=== PATIENT | female | born 1995 | race Caucasian/White ===

== ENCOUNTER 2020-03-08 13:34 | Emergency (ER) | payer OTHER ==
[~2020-03-08] VITALS: Ht 160 cm; Wt 67.7 kg
[2020-03-08] MEDS ORDERED: IV NORMAL SALINE 1,000ML 1,000 ML IV SCH (13:40)
[2020-03-08] MEDS ORDERED: CHARCOAL/SORBITOL 25 GM/120 ML SUSPENSION. PO ONE (13:45)
--- NOTE | 2020-03-08 13:56 | PHYS DOC ---
Past History Past Medical History: Migraines Smoking: Non-smoker Alcohol Use: Rarely Drug Use: None General Adult EDM: Chief Complaint: SUICIDAL IDEATION HPI: HPI: 24-year-old female who experiencing depression and took overdose of 6 25 mg Topamax and 6 50 mg sumatriptan approximately 1245 today. Patient says this was due to depression and this was a suicide attempt. Patient called ambulance. Patient still feels suicidal. Patient complains of nausea but denies any pain. Review of Systems: Review of Systems: Constitutional: Denies fever or chills Eyes: Denies change in visual acuity HENT: Denies sore throat Respiratory: Denies cough or shortness of breath Cardiovascular: Denies chest pain or edema GI: Denies abdominal pain, vomiting, or diarrhea complains of nausea : Denies dysuria Musculoskeletal: Denies back pain or joint pain Integument: Denies rash Neurologic: Denies headache or focal weakness Psychiatric: Complains of depression and suicidal ideation Heart Score: Risk Factors: Risk Factors: DM, Current or recent (<one month) smoker, HTN, HLP, family history of CAD, obesity. Risk Scores: Score 0 - 3: 2.5% MACE over next 6 weeks - Discharge Home Score 4 - 6: 20.3% MACE over next 6 weeks - Admit for Clinical Observation Score 7 - 10: 72.7% MACE over next 6 weeks - Early Invasive Strategies Current Medications: Current Meds: Current Medications Medications (Trade) Dose Ordered Sig/Bia Start Time Stop Time Status Last Admin Dose Admin Charcoal/Sorbitol (Actidose Sorbitol) 50 gm 1X ONCE 03/08/20 13:45 03/08/20 13:46 DC Sodium Chloride 1,000 ml @ 1,000 mls/hr Q1H 03/08/20 13:40 03/08/20 14:39 Allergies: Allergies: Allergies Coded Allergies Type Severity Reaction Last Updated Verified azathioprine Allergy Unknown 03/08/20 Yes Physical Exam: PE: Constitutional: Well developed, well nourished, no acute distress, non-toxic appearance. [] HENT: Normocephalic, atraumatic, bilateral external ears normal, oropharynx moist, no oral exudates, nose normal. [] Eyes: PERRLA, EOMI, conjunctiva normal, no discharge. [] Neck: Normal range of motion, no tenderness, supple, no stridor. [] Cardiovascular:Heart rate regular rhythm, no murmur [] Lungs & Thorax: Bilateral breath sounds clear to auscultation [] Abdomen: Bowel sounds normal, soft, no tenderness, no masses, no pulsatile masses. [] Skin: Warm, dry, no erythema, no rash. [] Back: No tenderness, no CVA tenderness. [] Extremities: No tenderness, no cyanosis, no clubbing, ROM intact, no edema. [] Neurologic: Alert and oriented X 3, normal motor function, normal sensory function, no focal deficits noted. [] Psychologic: Depressed mood, tearful EKG: EKG: [] Normal sinus rhythm with a rate of 94 normal axis normal intervals and normal ST segments Radiology/Procedures: Radiology/Procedures: [] Course & Med Decision Making: Course & Med Decision Making Pertinent Labs and Imaging studies reviewed. (See chart for details) At 1430 discussed with poison control who suggest 6-hour observation after mesfin stion which will be right around 7:00 tonight. 17:45 patient resting comfortably. waiting on recs from psych team Patient evaluated by the behavioral health team. Patient contract receiving given outpatient referrals. On reassessment patient denies suicidal ideation and is cleared for home. Dragon Disclaimer: Moozey Disclaimer: This electronic medical record was generated, in whole or in part, using a voice recognition dictation system. Departure Departure: Impression: Primary Impression: Overdose Additional Impression: Depression Disposition: 01 HOME/RESIDENCE PRIOR TO ADM Condition: STABLE Referrals: per behavioral health team Patient Instructions: Depression, Adult, Overdose, Adult Additional Instructions: EMERGENCY DEPARTMENT GENERAL DISCHARGE INSTRUCTIONS Thank you for coming to [facility] (ED) today and trusting us with you care. We trust that you had a positivie experience in our Emergency Department. YOUR FOLLOW UP INSTRUCTIONS ARE FOLLOWS: 1. Do you have a private Doctor? If you do not have a private doctir, please ask for a resource list of physicians or clinics that may be able to assist you with follow up care. 2. The Emergency Physicain has interpreted your x-rays. The X-Ray specialist will also review them. If there is a change in the findingd, you will be notified in 48 hours when at all possible. 3. A lab test or culture has been done, your results will be reviewed and you will be notified if you need a change in treatment. ADDITIONAL INSTRUCTIONS AND INFORMATION: 1. Your care today has been supervised by a physician who is specially trained in emergency care. Many problems require more than one evaluation for a complete diagnosis and treatment. We recommend that you schedule your follow up appointment as recommended to ensure complete treatment of you illness or injury. If you are unable to obtain follow up care and continue to have a problem, or if your consition worsens, we recommend that you return to the ED. 2. We are not able to safelymdetermine your condition over the phone nor are we able to give sound medical advice over the phone. For these safety reasons, if you call for medical advice we will ask you to come to the ED for further evaluation. 3. If you have any questions regarding these discharge instructions please call the ED at [phone]. SAFETY INFORMATION: In the interest of safety, wellness, and injury prevention; we encourage you to wear your sealbelt, if you smoke; quite smoking, and we encourage family to use a protective helmet for bicycling and other sporting events that present an increased risk for head injusry. IF YOUR SYMPTOMS WORSEN OR NEW SYMPTOMS DEVELOP, OR YOU HAVE CONCERNS ABOUT YOUR CONDITION; OR IF YOUR CONDITION WORSENS WHILE YOU ARE WAITING FOR YOUR FOLLOW UP APPOINTMENT; EITHER CONTACT YOUR PRIMARY CARE DOCTOR, THE PHYSICIAN WHOSE NAME AND NUMBER YOU WERE GIVEN, OR RETURN TO THE ED IMMEDIATELY. Justification of Admission: Justification of Admission: Justification of Admission Dx: N/A RUTH FLEMING MD Mar 08, 2020 13:56
--- NOTE | 2020-03-08 14:06 | EKG ---
[address] [address] Test Date: 2020-03-08 Test Time: 13:49:03 Pat Name: EFREM HIGGINBOTHAM Department: Room: Gender: F Box Tender: : 1995 Requested By: RUTH FLEMING Order Number: [id number] Reading MD: Measurements Intervals [place] Rate: 94 P: 51 CO: 144 QRS: 12 QRSD: 86 T: 38 QT: 348 QTc: 441 Interpretive Statements SINUS RHYTHM NORMAL ECG RI6.02 No previous ECG available for comparison
[2020-03-08] MEDS ORDERED: ONDANSETRON PF 4 MG/2 ML VIAL. IVP ONE ×2 (14:15→19:00)
[2020-03-08 14:19] LABS: BARBITURATES NEG (NEG); BENZODIAZEPINES NEG (NEG); CANNABINOIDS NEG (NEG); COCAINE NEG (NEG); METHADONE NEG (NEG); OPIATES NEG (NEG); PHENCYCLIDINE NEG (NEG)
[2020-03-08 14:21] LABS: AMPHETAMINE/METHAMPHETAMINE NEG (NEG)
[2020-03-08 14:25] LABS: BASO % 1 % (0-3); EOS # 0.1 x10^3/uL (0.0-0.7); EOS % 2 % (0-3); HEMATOCRIT 42.8 % (36.0-47.0); HEMOGLOBIN 14.4 g/dL (12.0-15.5); LYMPH # 0.8 x10^3/uL (1.0-4.8); LYMPH % 28 % (24-48); MEAN CORPUSCULAR HEMOGLOBIN 30 pg (25-35); MEAN CORPUSCULAR HGB CONC 34 g/dL (31-37); MEAN CORPUSCULAR VOLUME 89 fL (79-100); MONO # 0.2 x10^3/uL (0.0-1.1); MONO % 5 % (0-9); NEUT % 64 % (31-73); PLATELET COUNT 153 x10^3/uL (140-400); RED BLOOD COUNT 4.79 x10^6/uL (3.50-5.40); RED CELL DISTRIBUTION WIDTH 14.3 % (11.5-14.5); WHITE BLOOD COUNT 3.1 x10^3/uL (4.0-11.0)
[2020-03-08 14:53] LABS: PREG TEST PT QUAL NEGATIVE (NEG)
[2020-03-08 14:58] LABS: GFR 69.3; POTASSIUM 3.5 mmol/L (3.5-5.1)
[2020-03-08 15:00] LABS: ACETAMIN < 2.0 mcg/mL (10-30); ETHANOL < 10 mg/dL (0-10); SALIC < 2.8 mg/dL (2.8-20.0)
[2020-03-08 15:06] LABS: ALBUMIN 4.3 g/dL (3.4-5.0); ALBUMIN/GLOBULIN RATIO 1.3 (1.0-1.7); TOTAL BILIRUBIN 0.7 mg/dL (0.2-1.0); TOTAL PROTEIN 7.5 g/dL (6.4-8.2)
[2020-03-08 16:52] VITALS: BP 130/75
== END 2020-03-08 19:09 | disposition home or self-care (01) ==
LOC: ER 13:34
DX: T42.6X2A Poisoning by other antiepileptic and sedative-hypnotic drugs, intentional self-harm, initial encounter (principal); T39.8X2A Poisoning by other nonopioid analgesics and antipyretics, not elsewhere classified, intentional self-harm, initial encounter; F32.9 Major depressive disorder, single episode, unspecified; G43.909 Migraine, unspecified, not intractable, without status migrainosus; Z88.8 Allergy status to other drugs, medicaments and biological substances; Y92.89 Other specified places as the place of occurrence of the external cause
CPT/HCPCS: 36415; 80053; 80307; 80329; 84703; 85025; 93005; 96374; 96376; 99285; G0480; J2405; J7030; 99284-25